=== PATIENT | female | born 1970 | race Caucasian/White ===

== ENCOUNTER 2017-02-17 05:35 | Day surgery (SDC) | payer MEDICAID ==
[2017-02-16 12:18] LABS: BASOPHILS # (AUTO) 0.1 X10'3 (0-0.2); BASOPHILS % (AUTO) 1.3 % (0-1); EOSINOPHILS # (AUTO) 0.2 X10'3 (0-0.9); EOSINOPHILS % (AUTO) 2.5 % (0-6); HEMATOCRIT 40.8 % (35.0-45.0); HEMOGLOBIN 13.4 g/dl (12.0-16.0); LYMPHOCYTES # (AUTO) 1.6 X10'3 (1.1-4.8); LYMPHOCYTES % (AUTO) 18.5 % (21-51); MEAN CORPUSCULAR HEMOGLOBIN 26.7 PG (27.0-31.0); MEAN CORPUSCULAR HGB CONC 32.9 % (33.0-36.5); MEAN CORPUSCULAR VOLUME 81.3 FL (78-98); MEAN PLATELET VOLUME 6.9 FL (7.4-10.4); MONOCYTES # (AUTO) 0.4 X10'3 (0-0.9); MONOCYTES % (AUTO) 4.7 % (2-12); NEUTROPHILS # (AUTO) 6.5 X10'3 (1.8-7.7); PLATELET COUNT 422 X10'3 (140-440); RED BLOOD COUNT 5.02 X10'6 (4.20-5.60); RED CELL DISTRIBUTION WIDTH 16.3 % (11.5-14.5); WHITE BLOOD COUNT 8.9 X10'3 (4.5-11.0)
[2017-02-16 12:31] LABS: INR 0.9 INR; PARTIAL THROMBOPLASTIN TIME 26 SECONDS (22-32); PROTHROMBIN TIME 9.5 SECONDS (9.0-12.0)
[2017-02-16 12:40] LABS: ALANINE AMINOTRANSFERASE 30 U/L (12-78); ALBUMIN 2.9 G/DL (3.4-5.0); ALBUMIN/GLOBULIN RATIO 0.6 (1.1-1.5); ALKALINE PHOSPHATASE 132 IU/L (46-116); ANION GAP 8 (8-16); ASPARTATE AMINO TRANSFERASE 20 U/L (10-37); BILIRUBIN,TOTAL 0.3 MG/DL (0.1-1.0); BLOOD UREA NITROGEN 5 MG/DL (7-18); CALCIUM 8.5 MG/DL (8.5-10.1); CHLORIDE 106 MMOL/L (99-107); CREATININE 0.71 MG/DL (0.40-0.90); GLUCOSE 109 MG/DL (70-104); POTASSIUM 3.7 MMOL/L (3.5-5.1); SODIUM 141 MMOL/L (135-145); TOTAL CARBON DIOXIDE 27.3 MMOL/L (24-32); TOTAL PROTEIN 7.4 G/DL (6.4-8.2); eGFR 88 ML/MIN
[2017-02-17] VITALS (12 sets, daily range): BP systolic 136–158; BP diastolic 79–96
[~2017-02-17] VITALS: Ht 170.2 cm; Wt 142.2 kg
[2017-02-17] MEDS ORDERED: LORazepam 0.5 MG tablet PO PRN (05:55)
[2017-02-17] MEDS ORDERED: nitroGLYCERIN 0.4mg SUBLingual tab SL PRN (05:55)
[2017-02-17] MEDS ORDERED: diphenhydrAMINE 25mg capsule PO PRN (05:55)
[2017-02-17] MEDS ORDERED: normal saline 1000ml 1,000 ML IV SCH (05:55)
[2017-02-17] MEDS ORDERED: PRED10TA23 PO ×2 (06:29)
[2017-02-17] MEDS ORDERED: CLON-527 PO (06:29)
[2017-02-17] MEDS ORDERED: CYCL-394 PO (06:29)
[2017-02-17] MEDS ORDERED: LEVO100T PO (06:29)
[2017-02-17] MEDS ORDERED: SERT100T PO (06:29)
[2017-02-17] MEDS ORDERED: RIZA10TA29 PO (06:29)
[2017-02-17] MEDS ORDERED: ERGO500014 PO (06:29)
[2017-02-17] MEDS ORDERED: TRAM50TA2 PO (06:29)
[2017-02-17] MEDS ORDERED: CYAN100097 PO (06:29)
[2017-02-17] MEDS ORDERED: ONDA4TAB12 PO (06:29)
[2017-02-17] MEDS ORDERED: PRAM0.253 PO (06:29)
[2017-02-17] MEDS ORDERED: midazolam 2 mg/2 ml injection ONE ×2 (08:50→09:31)
[2017-02-17] MEDS ORDERED: fentaNYL/PF 50MCG/1 ML 2ML syringe ONE ×2 (08:50→09:31)
[2017-02-17] MEDS ORDERED: iohexol 350MG/ML 100ml bottle IV ONE (08:51)
[2017-02-17] MEDS ORDERED: LIDOcaine 1%/PF (10mg/ml) 5ml vial ONE (08:51)
[2017-02-17] MEDS ORDERED: iohexol 350 MG/ML 50ML vial IV ONE (08:54)
[2017-02-17] MEDS ORDERED: diphenhydrAMINE 50 mg/ml inj ONE (09:16)
[2017-02-17] MEDS ORDERED: hydrocortisone sod succ/PF 100mg/2ml inj. ONE (09:36)
[2017-02-17] MEDS ORDERED: proCHLORperazine 10 MG/2 ml inj ONE (09:43)
[2017-02-17] MEDS ORDERED: epiNEPHrine 0.1mg/ml 10ml syringe ONE (09:45)
[2017-02-17] MEDS ORDERED: HYDROcodone/acetaminophen 10/325mg tab PO PRN (10:40)
[2017-02-17] MEDS ORDERED: proCHLORperazine 10 MG/2 ml inj IV PRN (10:40)
[2017-02-17] MEDS ORDERED: ondansetron/PF 4mg/2ml inj IV PRN (10:40)
[2017-02-17] MEDS ORDERED: OXAZEpam 15mg capsule PO PRN (10:40)
[2017-02-17] MEDS ORDERED: HYDROcodone/acetaminophen 5mg/325mg tablet PO PRN (10:40)
== END 2017-02-17 15:55 | disposition home or self-care (01) ==
LOC: SSTAY O 05:35
PROVIDERS: ATTEND Internal Medicine Cardiovascular Disease
DX: I25.10 Atherosclerotic heart disease of native coronary artery without angina pectoris (principal); I10 Essential (primary) hypertension; E78.5 Hyperlipidemia, unspecified; Z88.2 Allergy status to sulfonamides; Z88.0 Allergy status to penicillin; Z88.3 Allergy status to other anti-infective agents; Z91.013 Allergy to seafood; Z88.6 Allergy status to analgesic agent; Z79.899 Other long term (current) drug therapy; Z98.890 Other specified postprocedural states
CPT/HCPCS: 36415; 71020; 80053; 85025; 85610; 85730; 93458; 99153; A6257; C1769; G0500; J0780; J1200; J1644; J1720; J2001; J2250; J3010; J7030; Q9967; 99152; A4620; J0171

== ENCOUNTER 2017-05-12 13:15 | Emergency (ER) | payer MEDICAID ==
[~2017-05-12] VITALS: Ht 170.2 cm; Wt 143.9 kg
[~2017-05-12 13:15] MED LIST: CLON-527 PO; CYAN100097 PO; CYCL-394 PO; ERGO500014 PO; LEVO100T PO; ONDA4TAB12 PO; PRAM0.253 PO; PRED10TA23 PO; RIZA10TA29 PO; SERT100T PO; TRAM50TA2 PO
[2017-05-12 13:41] LABS: CLARITY,URINE CLOUDY (Clear); COLOR,URINE YELLOW (Yellow); GLUCOSE, URINE NEGATIVE (Neg); KETONES,URINE NEGATIVE (Neg); LEUKOCYTE ESTERASE ,URINE NEGATIVE (Neg); NITRITES, URINE NEGATIVE (Neg); OCCULT BLOOD,URINE NEGATIVE (Neg); PH,URINE 7.5 (4.8-8.0); PROTEIN,URINE TRACE mg/dl (Neg)
[2017-05-12 13:43] LABS: UA COLLECTION TYPE CLN CATCH MIDSTREAM
[2017-05-12 13:46] LABS: HYALINE CASTS 0-3 /LPF (NEGATIVE); MUCUS STRANDS MODERATE /LPF (Neg); SQUAMOUS EPITHELIAL CELL,UR MANY /LPF (FEW)
[2017-05-12 13:47] LABS: BACTERIA,URINE 2+ /HPF (Neg); RBC,URINE 0-2 /HPF (0-2); WBC,URINE 0-4 /HPF (0-4)
[2017-05-12 14:01] LABS: BASOPHILS % (AUTO) 0.4 % (0-1); EOSINOPHILS # (AUTO) 0.6 X10'3 (0-0.9); EOSINOPHILS % (AUTO) 5.9 % (0-6); HEMATOCRIT 31.6 % (35.0-45.0); HEMOGLOBIN 10.2 g/dl (12.0-16.0); LYMPHOCYTES # (AUTO) 2.1 X10'3 (1.1-4.8); LYMPHOCYTES % (AUTO) 20.7 % (21-51); MEAN CORPUSCULAR HEMOGLOBIN 25.4 PG (27.0-31.0); MEAN CORPUSCULAR HGB CONC 32.1 % (33.0-36.5); MEAN PLATELET VOLUME 6.3 FL (7.4-10.4); MONOCYTES # (AUTO) 0.6 X10'3 (0-0.9); MONOCYTES % (AUTO) 5.4 % (2-12); NEUTROPHILS # (AUTO) 6.9 X10'3 (1.8-7.7); NEUTROPHILS % (AUTO) 67.6 % (42-75); PLATELET COUNT 639 X10'3 (140-440); RED CELL DISTRIBUTION WIDTH 16.3 % (11.5-14.5); WHITE BLOOD COUNT 10.1 X10'3 (4.5-11.0)
[2017-05-12 14:13] LABS: PARTIAL THROMBOPLASTIN TIME 30 SECONDS (22-32); PROTHROMBIN TIME 9.9 SECONDS (9.0-12.0)
[2017-05-12 14:17] LABS: ALANINE AMINOTRANSFERASE 29 U/L (12-78); ALBUMIN 2.7 G/DL (3.4-5.0); ALBUMIN/GLOBULIN RATIO 0.5 (1.1-1.5); ALKALINE PHOSPHATASE 140 IU/L (46-116); ANION GAP 7 (8-16); ASPARTATE AMINO TRANSFERASE 20 U/L (10-37); BILIRUBIN,TOTAL 0.2 MG/DL (0.1-1.0); BLOOD UREA NITROGEN 7 MG/DL (7-18); BUN/CREATININE RATIO 10.6 (6.6-38.0); CALCIUM 8.7 MG/DL (8.5-10.1); CHLORIDE 105 MMOL/L (99-107); CREATININE 0.66 MG/DL (0.40-0.90); GLUCOSE 87 MG/DL (70-104); POTASSIUM 3.9 MMOL/L (3.5-5.1); SODIUM 140 MMOL/L (135-145); TOTAL CARBON DIOXIDE 28.4 MMOL/L (24-32); TOTAL PROTEIN 7.7 G/DL (6.4-8.2); eGFR > 90 ML/MIN
[2017-05-12] MEDS ORDERED: ALB0.5UD IH (15:20)
[2017-05-12] MEDS ORDERED: BUDE10.22 INH (15:20)
[2017-05-12] MEDS ORDERED: oxycodone (15:20)
[2017-05-12] MEDS ORDERED: GABA-769 PO (15:20)
[2017-05-12] MEDS ORDERED: CLIN150C2 PO (16:17)
[2017-05-12] MEDS ORDERED: RIFA300C4 PO (16:17)
[2017-05-12 16:39] VITALS: BP 153/103
== END 2017-05-12 16:41 | disposition home or self-care (01) ==
LOC: ER 13:15
DX: Z48.01 Encounter for change or removal of surgical wound dressing (principal); G89.29 Other chronic pain; Z98.890 Other specified postprocedural states; Z88.0 Allergy status to penicillin; Z88.2 Allergy status to sulfonamides; Z91.013 Allergy to seafood; Z88.8 Allergy status to other drugs, medicaments and biological substances; Z79.899 Other long term (current) drug therapy
CPT/HCPCS: 36415; 80053; 81001; 83605; 84145; 85025; 85610; 85730; 87040; 99284; A6255